=== PATIENT | male | born 1950 | race Caucasian/White ===

== ENCOUNTER → 2021-11-12 | Outpatient (CLI) | payer MEDICARE | LOC: KOH-I 08:24 | DX: M79.671 Pain in right foot (principal); M20.11 Hallux valgus (acquired), right foot | CPT/HCPCS: 73630 ==

== ENCOUNTER → 2021-11-19 | Outpatient (CLI) | payer MEDICARE | LOC: KOH-I 10:30 | DX: M79.671 Pain in right foot (principal); S86.011A Strain of right Achilles tendon, initial encounter | CPT/HCPCS: 73718 ==